=== PATIENT | female | born 2000 | race Two or more races ===

== ENCOUNTER 2024-10-03 10:05 | Inpatient (IN) | payer BC ==
[2024-10-03] VITALS (15 sets, daily range): BP systolic 92–113; BP diastolic 52–73; PULSE 67–96; RESP 10–18; TEMP 98.1; O2SAT 96–100
[~2024-10-03] VITALS: Ht 160 cm; Wt 61.2 kg
--- NOTE | 2024-10-03 10:19 | Physician Documentation ---
History of Present Illness Chief Complaint: Abdominal Pain w/vomiting Stated Complaint: TRANSFER Time Seen by MD: 10:09 Source: patient (16) HPI Patient was transferred to us from [facility] with acute appendicitis. She reports that she started having what felt like a stitch in her right side while driving up to [facility] yesterday, and the abdominal pain has settled in the middle of her abdomen today. She presented with vomiting and diarrhea with some low abdominal pain, but the extent of her pain prompted the transferring physician to order a CT scan. This is consistent with acute appendicitis and patient was transferred here for further care. She received Zosyn at the transferring facility, white blood cell count was 11, test negative, a received IV fluids and [address]an on the way to the hospital. She is NPO and awaiting surgical consultation. Medication Reconciliation Allergies: Coded Allergies: No Known Allergies (Unverified , 10/03/24) Miscellaneous Medications Home Med List (No Home Medications), (Reported) Past Medical History Past Medical History: No Pertinent History Smoking Status: Never smoker Alcohol Use: None Drug Use: none Review of Systems All Other Systems at this time: Reviewed and Negative Physical Exam Vital Signs: Temperature: 97.1, Source: Oral, Heart Rate: 89, Respiratory Rate: 16, BP: 122/80, Pulse Oximetry: 100, Weight: 61.230 Oxygen Flow Rate: 0 Physical Exam General: Pt is awake, alert, oriented x4 in no acute distress and well appearing. Head: Normocephalic and atraumatic. Eyes: Conjunctiva normal. ENT: Mucous membranes moist. Neck: Supple. Chest: Clear to auscultation bilaterally, without rales, rhonchi, or wheezes. There is no accessory muscle use or retractions. Cardiac: Regular rate and rhythm without murmurs, gallops or rubs. Palpation of the chest wall is normal. Abd: Soft, nondistended, tender diffusely but especially at the epigastrium and right lower quadrant, with hypoactive bowel sounds. No guarding or rebound. Extremities: Within normal limits without cyanosis, clubbing, or edema. Skin: Niles, warm and dry with no significant rash appreciated. Neuro: Cranial nerves II-XII grossly intact. The gait is normal. Progress Progress Note Labs from [facility]: WBC 13, hemoglobin 11.9, platelets 228. CRP 9.67. CT: Findings consistent with acute appendicitis considering significantly dilated and fluid-filled appendix measuring up to 1.4 cm with associated several appendicoliths currently. There was no a pit periappendiceal walled-off fluid collection or free abdominal air. Results/Orders Results/Orders Vital Signs 10/03/24 10:07 Temp 97.1 Pulse 89 Resp 16 B/P (MAP) 122/80 Pulse Ox 100 O2 Flow Rate 0 Consults/PCP Consults/PCP #1: Time Call Requested: 10:18 Consult Reason/Comments: Case d/w Dr. Ram, who will see. Consults/PCP #2: Time Call Requested: 10:18 Consult Reason/Comments: Hospitalist Additional Comment 11:00 Dr. Flannery agrees to admit Medical Decision Making Additional Comments CT verified appendicitis without obstruction or perforation, admit for surgical consultation. Departure Time of Disposition: 10:27 Impression: Primary Impression: Acute appendicitis Qualified Codes: K35.80 - Unspecified acute appendicitis Condition: Fair Referrals: NO PRIMARY CARE PROVIDER (PCP) Education Educated: Patient Educated regarding: diagnosis, treatment JOSE ELIAS GASPAR MD Oct 03, 2024 10:19
[2024-10-03] MEDS ORDERED: NO HOME MEDS (10:24)
[2024-10-03] MEDS ORDERED: mag hydrox/Alum hydrox/simeth 30ml oral suspension PO PRN (11:00)
[2024-10-03] MEDS ORDERED: magnesium Cl slow-release 64mg tablet PO PRN (11:00)
[2024-10-03] MEDS ORDERED: potassium Cl 20 mEq SR tablet PO PRN (11:00)
[2024-10-03] MEDS ORDERED: magnesium sulf-water 2g/50mL 50 ML IV PRN (11:00)
[2024-10-03] MEDS ORDERED: HYDROcodone/acetaminophen 5mg/325mg tablet PO PRN (11:00)
[2024-10-03] MEDS ORDERED: potassium Cl 40MEQ/1/2NS 520ml 520 ML IV PRN (11:00)
[2024-10-03] MEDS ORDERED: magnesium hydroxide 30ml (MOM) UD suspension PO PRN (11:00)
[2024-10-03] MEDS ORDERED: magnesium sulf-water 4G/100mL 100 ML IV PRN (11:00)
[2024-10-03] MEDS ORDERED: acetaminophen 325mg tablet PO PRN (11:00)
[2024-10-03] MEDS: normal saline 1000ml 1,000 ML IV SCH (11:37)
--- NOTE | 2024-10-03 11:40 | HISTORY AND PHYSICAL ---
History & Physical Providers to CC ~ History of Present Illness Reason for Admit\Complaint: Acute appendicitis History of Present Illness This is a 24-year-old female who was transferred from [facility] she was driving up to [facility] yesterday when she noticed abdominal pain in her right lower quadrant and with nausea and vomited. The patient denies being febrile. Patient has decided to go to the ED to the ED she has been having nausea and diarrhea since yesterday and CT scan was obtained that demonstrated an acute appendicitis [place] a [place] [id number] [place] the patient was transferred to [facility] she is NPO Dr. Hussein ED physician spoke to on-call surgeon Dr. Ram who is going to take the patient to surgery the patient is on IV Zosyn in his NPO. Allergies: Coded Allergies: No Known Allergies (Unverified , 10/03/24) Home Medications Home Medications Active Reported No Home Medications (Home Med List) Each Past Medical History Past Medical History No chronic health problems Past Surgical History Surgical History Comment No prior surgeries Family History Family History: FH: diabetes mellitus FATHER MOTHER Past Social History Social History Comment Patient denes history of smoking/ drinking alcohol nor any illicit drug use Full Code Status ROS ROS Except for positives in the HPI the rest of the 14 point review systems is negative Exam Vitals: Vital Signs Date Time Temp Pulse Resp B/P (MAP) Pulse Ox O2 Delivery O2 Flow Rate FiO2 10/03/24 10:52 97.1 68 18 122/81 (95) 100 0 General: Gen. No acute distress alert and oriented 4 Lungs clear to ascultation bilaterally, no wheezes rales or rhonchi appreciated Heart normal sinus rhythm no murmurs rubs or clicks noted Abdomen soft, mild right lower quadrant abdominal tenderness, bowel sounds are normoactive Lower extremities no clubbing cyanosis, nor edema appreciated bilaterally Advance Care Planning Advanced Care plannin - 30 Minutes Problems: (1) Acute appendicitis Status: Acute Additional Plan # acute appendicitis- NPO, on IV Zosyn, on-call surgeon Dr. Ram is aware of the patient and will consult for a appendectomy. # DVT prophylaxis SCDs I spent a total of 16 minutes on reviewing various resuscitative measures/ ACP with the patient at the time of admission. The patient has decided on full code status. Date of Service: Oct 03, 2024 Billing Provider: AUGUSTIN WOODS DO Common Visit Codes: [id number] INP/OBS CARE (MOD) Secondary Visit Codes: [id number] CARE PLAN 30 MINUTES Problem Qualifiers (1) Acute appendicitis: Acute appendicitis type: unspecified acute appendicitis type Qualified Codes: K35.80 - Unspecified acute appendicitis AUGUSTIN WOODS DO Oct 03, 2024 11:40
[2024-10-03] MEDS: ondansetron/PF 4mg/2ml inj IV PRN (12:21)
[2024-10-03] MEDS ORDERED: proCHLORperazine 10 MG/2 ml inj IV PRN (13:20)
[2024-10-03] MEDS ORDERED: morphine 4 MG/ML inj SYRINge IV PRN (13:20)
[2024-10-03] MEDS ORDERED: hydrALAZINE 20mg/ml inj. IV PRN (13:20)
[2024-10-03] MEDS ORDERED: meperidine/PF 25mg/ml syringe IV PRN (13:20)
[2024-10-03] MEDS ORDERED: morphine 2 MG/ML inj. syringe IV PRN (13:20)
[2024-10-03] MEDS ORDERED: labetalol 20mg/4ml (5mg/ml) syringe IV PRN (13:20)
[2024-10-03] MEDS ORDERED: HYDROmorphone/PF 0.2 MG/ML SYRINGE IV PRN ×2 (13:20)
[2024-10-03] MEDS ORDERED: ondansetron/PF 4mg/2ml inj IV PRN ×2 (13:20→16:15)
[2024-10-03] MEDS ORDERED: BUPIVAcaine 2.5mg/ml inj 50ml vial (contains preservative) ONE (13:32)
--- NOTE | 2024-10-03 13:38 | PROGRESS NOTE ---
Progress Note ID Providers to CC ~ Progress Note Progress Note: pt seen and examined-needs jayleno appy-possible open-discussed procedure including risks/benefits/alternatives MEI PEREZ MD Oct 03, 2024 13:38
[2024-10-03] MEDS: HYDROmorphone inj. 0.5 MG/0.5 ML DISP.SYRIN IV PRN (13:50)
[2024-10-03] MEDS ORDERED: midazolam 1 mg/ML 2ml injection ONE (15:12)
[2024-10-03] MEDS ORDERED: fentaNYL /PF 50mcg/ml 5ml ampule ONE (15:12)
[2024-10-03] MEDS ORDERED: propofol inj 20 ML IV ONE (15:24)
[2024-10-03] MEDS ORDERED: LIDOcaine 2% (20mg/ml) 5ml vial ONE (15:25)
[2024-10-03] MEDS ORDERED: dexamethasone sod phosphate 4mg/ml inj. ONE (15:25)
[2024-10-03] MEDS ORDERED: ceFOXitin 1000 MG inj ONE ×2 (15:25)
[2024-10-03] MEDS ORDERED: rocuronium 10mg/ml inj IV ONE (15:25)
[2024-10-03] MEDS ORDERED: neostigmine methylsulfate 1 MG/ML 10ml vial ONE ×2 (15:25→16:02)
[2024-10-03] MEDS ORDERED: sevoflurane 250ml liquid IH ONE (15:28)
[2024-10-03] MEDS: BUPIVAcaine/PF 2.5 mg/ml (0.25%) 30ml vial IJ ONE (15:41)
[2024-10-03] MEDS ORDERED: piperacillin/tazo 4.5gm/100ml 100 ML IV SCH (16:00)
[2024-10-03] MEDS ORDERED: glycopyrrolate 0.2mg/ml inj ONE (16:02)
[2024-10-03] MEDS ORDERED: ondansetron/PF 4mg/2ml inj ONE (16:02)
--- NOTE | 2024-10-03 16:12 | OPERATIVE REPORT ---
Operative Report Providers to CC ~ Date of Procedure: Oct 03, 2024 Pre-Operative Diagnosis: Ac Appendicitis Post-Operative Diagnosis SAME as PRE-Op Procedure Performed maikel garcia Surgeon: jeremy delarosa Anesthesiologist: Nohelia Herrera Type of Anesthesia: General Findings: appendicitis Estimated Blood Loss: min Specimen Removed: MEI Cohen MD Oct 03, 2024 16:12
[2024-10-03] MEDS ORDERED: PCA WASTE DOCUMENTATION 1 MG ML MC SCH (16:15)
[2024-10-03] MEDS ORDERED: naloxone 0.4 mg/ml inj IV PRN (16:15)
[2024-10-03] MEDS: acetaminophen 1,000mg/100ml IV 100 ML IV PRN (16:23)
[2024-10-03] MEDS: HYDROmorphone inj. 0.5 MG/0.5 ML DISP.SYRIN IV ONE (16:55)
--- NOTE | 2024-10-03 17:06 | OPERATIVE REPORT ---
DATE OF SURGERY: 10/03/2024 DICTATING PHYSICIAN: Martin Ram MD PREOPERATIVE DIAGNOSIS: Appendicitis. POSTOPERATIVE DIAGNOSIS: Appendicitis. PROCEDURE PERFORMED: Robotic appendectomy. SURGEON: Martin Ram MD CERTIFIED DIALYSIS TECHNICIAN: None. ANESTHESIA: General/Dr. Herrera. DRAINS: None. INDICATIONS FOR OPERATION: A 24-year-old female with abdominal pain, was found to have acute appendicitis, taken to Surgery for the appendectomy. INTRAOPERATIVE FINDINGS: Acute appendicitis. DESCRIPTION OF PROCEDURE: The patient was placed supine on the operating table. After the induction of general anesthesia and placement of endotracheal tube, the abdomen was prepped and draped. A supraumbilical incision was then made and a 12 mm port was placed using open technique. Pneumoperitoneum was then begun by insufflation of CO2. Additional ports were placed, one in the left and one placed in the right. Robot was then brought to the field. Camera port docked. Camera placed. Camera targeted. Additional ports were then docked and instruments placed. Abdomen was then explored. Appendix was easily visualized in the pelvis. ligated using a stapler. Appendiceal-cecal junction was identified, isolated, and ligated with a blue load. When the appendix was fully mobilized, hemostasis was found to be adequate. Robotic instruments were removed. Robot undocked from the field. The appendix was then placed in a laparoscopic bag using the laparoscope. The abdomen was copiously irrigated with large amount of antibiotic-containing solution. Hemostasis was found to be adequate. Ports were removed along with the appendix in Endobag. Pneumoperitoneum was then evacuated. Wounds were closed in layers. Skin was closed with subcuticular sutures. Dressing was applied. The patient was transferred to the recovery room in stable condition after reversing from general anesthesia. Martin Ram MD TID: [id number] RECEIPT: [id number] KB/YO cc: Martin Ram MD MTDD
[2024-10-03] MEDS: HYDROmorphone/PF 0.2 MG/ML SYRINGE IV PRN (18:03)
[2024-10-03] MEDS: piperacillin/tazo 4.5gm/100ml 100 ML IV SCH (20:27)
[2024-10-03] MEDS: normal saline 1000ml 1,000 ML IV ONE (22:07)
[2024-10-04] VITALS (9 sets, daily range): BP systolic 98–130; BP diastolic 55–93; PULSE 69–95; RESP 14–20; TEMP 98.2–100.9; O2SAT 96–100
[2024-10-04] MEDS: HYDROcodone/acetaminophen 10/325mg tab PO PRN (01:05)
[2024-10-04 05:17] LABS: BASOPHILS % (AUTO) 0.1 % (0-1); EOSINOPHILS % (AUTO) 0 % (0-6); HEMATOCRIT 23.6 % (35.0-45.0); HEMOGLOBIN 7.8 g/dl (12.0-16.0); LYMPHOCYTES # (AUTO) 0.6 X10'3 (1.1-4.8); LYMPHOCYTES % (AUTO) 4.8 % (21-51); MEAN CORPUSCULAR HEMOGLOBIN 28.6 PG (27.0-31.0); MEAN CORPUSCULAR HGB CONC 32.9 g/dL (33.0-36.5); MEAN CORPUSCULAR VOLUME 86.9 FL (78-98); MEAN PLATELET VOLUME 9.4 FL (7.4-10.4); MONOCYTES # (AUTO) 0.5 X10'3 (0-0.9); MONOCYTES % (AUTO) 3.9 % (2-12); NEUTROPHILS # (AUTO) 11.1 X10'3 (1.8-7.7); NEUTROPHILS % (AUTO) 91.2 % (42-75); PLATELET COUNT 184 X10'3 (140-440); RED BLOOD COUNT 2.72 X10'6 (4.20-5.60); RED CELL DISTRIBUTION WIDTH 13.5 % (11.5-14.5); WHITE BLOOD COUNT 12.2 X10'3 (4.5-11.0)
[2024-10-04 05:37] LABS: ALANINE AMINOTRANSFERASE 17 U/L (12-78); ALBUMIN 2.8 G/DL (3.4-5.0); ALKALINE PHOSPHATASE 46 IU/L (46-116); ANION GAP 7 (8-16); ASPARTATE AMINO TRANSFERASE 18 U/L (10-37); BILIRUBIN,TOTAL 0.5 MG/DL (0.1-1.0); BLOOD UREA NITROGEN 6 MG/DL (7-18); BUN/CREATININE RATIO 8.1 (10.0-20.0); CALCIUM 7.9 MG/DL (8.5-10.1); CHLORIDE 111 MMOL/L (99-107); CREATININE 0.74 MG/DL (0.40-0.90); GLUCOSE 129 MG/DL (70-104); MAGNESIUM 1.6 MG/DL (1.5-2.4); SODIUM 142 MMOL/L (135-145); TOTAL CARBON DIOXIDE 23.8 MMOL/L (24-32); TOTAL PROTEIN 5.7 G/DL (6.4-8.2); eCRCL 98 ML/MIN; eGFR > 90 ML/MIN
[2024-10-04] MEDS: K and/or MAG REPLACEMENT MC SCH (08:00)
[2024-10-04] MEDS: docusate sod 100mg capsule PO SCH (08:14)
--- NOTE | 2024-10-04 09:04 | CONSULTATION ---
DATE OF CONSULTATION: 10/03/2024 DICTATING PHYSICIAN: Martin Ram MD REASON FOR CONSULTATION: Abdominal pain. HISTORY OF PRESENT ILLNESS: The patient is a 24-year-old female who was initially seen at [facility] with abdominal pain and CAT revealed evidence of acute appendicitis, subsequently transferred to [facility]. On further questioning, the patient complains of right lower quadrant pain. He also has some nausea and diarrhea. PAST MEDICAL HISTORY: Negative. PAST SURGICAL HISTORY: Negative. HOME MEDICATIONS: None. ALLERGIES: None. SOCIAL HISTORY: The patient denies drugs, tobacco or alcohol use. REVIEW OF SYSTEMS: Please see H and P. PHYSICAL EXAMINATION: GENERAL: Well-nourished female in no distress. VITAL SIGNS: Unremarkable. ABDOMEN: Abdominal exam shows some right lower quadrant tenderness. EXTREMITIES: Unremarkable. NEUROLOGIC: Nonfocal. LABORATORY DATA: WBC of 11. IMAGING STUDIES: CT of the abdomen reveals evidence of acute appendicitis. IMPRESSION: Acute appendicitis. RECOMMENDATIONS: * Admit. * Hydrate. * IV antibiotics. * Robotic appendectomy. Martin Ram MD TID: [id number] RECEIPT: [id number] KB/RULA/AMI
[2024-10-04] MEDS ORDERED: HYDR-3964 PO (10:48)
[2024-10-04 12:22] LABS: BASOPHILS % (AUTO) 0.1 % (0-1); EOSINOPHILS % (AUTO) 0 % (0-6); HEMATOCRIT 23.2 % (35.0-45.0); HEMOGLOBIN 7.5 g/dl (12.0-16.0); LYMPHOCYTES # (AUTO) 1.1 X10'3 (1.1-4.8); LYMPHOCYTES % (AUTO) 8.4 % (21-51); MEAN CORPUSCULAR HEMOGLOBIN 28.1 PG (27.0-31.0); MEAN CORPUSCULAR HGB CONC 32.3 g/dL (33.0-36.5); MEAN CORPUSCULAR VOLUME 87.2 FL (78-98); MEAN PLATELET VOLUME 9.3 FL (7.4-10.4); MONOCYTES # (AUTO) 0.8 X10'3 (0-0.9); MONOCYTES % (AUTO) 6.4 % (2-12); NEUTROPHILS # (AUTO) 11.1 X10'3 (1.8-7.7); NEUTROPHILS % (AUTO) 85.1 % (42-75); PLATELET COUNT 195 X10'3 (140-440); RED BLOOD COUNT 2.66 X10'6 (4.20-5.60); WHITE BLOOD COUNT 13.1 X10'3 (4.5-11.0)
[2024-10-04] MEDS: ringers solution, lacted 1,000 ML IV SCH (12:55)
[2024-10-04] MEDS: acetaminophen 325mg tablet PO PRN (18:03)
[2024-10-04] MEDS: HYDROmorphone inj. 0.5 MG/0.5 ML DISP.SYRIN IV ONE (19:20)
--- NOTE | 2024-10-04 20:03 | PROGRESS NOTE ---
Daily Progress Note Providers to CC ~ Antibiotic Timeout Antibiotic Ordered?: Yes Subjective Was anticipating discharging the patient today however she did drop her hemoglobin to 7.5 and her abdomen is distended and significantly tender- evaluated by Dr Ram surgeon who is planning to take the patient back to the OR for exploratory laparotomy. Objective Vital Signs Date Time Temp Pulse Resp B/P (MAP) Pulse Ox O2 Delivery O2 Flow Rate FiO2 10/04/24 19:20 14 10/04/24 18:03 100.9 10/04/24 10:00 95 130/93 (105) 100 Room Air 10/03/24 19:30 0.0 Result Diagram: 10/04/24 1205 10/04/24 0433 Gen. No acute distress alert and oriented 4 Lungs clear to ascultation bilaterally, no wheezes rales or rhonchi appreciated Heart normal sinus rhythm no murmurs rubs or clicks noted Abdomen warm to the touch, moderately distended in semi firm, significant generalized tenderness Lower extremities no clubbing cyanosis, nor edema appreciated bilaterally Problem\Assessment\Plan Problems/Diagnosis: (1) Acute appendicitis # acute appendicitis Status post robotic appendectomy On IV Zosyn # downtrend in hemoglobin with significant abdominal tenderness Dr Ram is concerned that the patient's abdominal discomfort is significantly more than to be expected postop in his concerned that the patient may have a abdominal bleed in his taking the patient back to the OR # leukocytosis Possibly secondary to leukemoid reaction Remains on Zosyn # DVT prophylaxis SCDs Date of Service: Oct 04, 2024 Billing Provider: AUGUSTIN WOODS DO Common Visit Codes: [id number] INP/OBS CARE(HIGH) Problem Qualifiers (1) Acute appendicitis: Qualified Codes: K35.80 - Unspecified acute appendicitis AUGUSTIN WOODS DO Oct 04, 2024 20:03
[2024-10-04 20:18] LABS: HEMATOCRIT 22.2 % (35.0-45.0); HEMOGLOBIN 7.2 g/dl (12.0-16.0); MEAN CORPUSCULAR HEMOGLOBIN 28.1 PG (27.0-31.0); MEAN CORPUSCULAR HGB CONC 32.4 g/dL (33.0-36.5); MEAN CORPUSCULAR VOLUME 86.8 FL (78-98); MEAN PLATELET VOLUME 9.4 FL (7.4-10.4); PLATELET COUNT 189 X10'3 (140-440); RED BLOOD COUNT 2.56 X10'6 (4.20-5.60); RED CELL DISTRIBUTION WIDTH 13.8 % (11.5-14.5); WHITE BLOOD COUNT 11.5 X10'3 (4.5-11.0)
--- NOTE | 2024-10-04 21:10 | PROGRESS NOTE ---
Progress Note ID Providers to CC ~ Progress Note Progress Note: complains of pain/vss/abd-mild distention/labs noted a/p 1. s/p appy-hgb decreased but stable/anticipate dc in am MEI PEREZ MD Oct 04, 2024 21:10
[2024-10-05] VITALS (7 sets, daily range): BP systolic 99–121; BP diastolic 50–71; PULSE 72–82; RESP 13–18; TEMP 98–100.9; O2SAT 98–100
[2024-10-05 05:25] LABS: BASOPHILS % (AUTO) 0.3 % (0-1); EOSINOPHILS % (AUTO) 0.4 % (0-6); LYMPHOCYTES # (AUTO) 1.6 X10'3 (1.1-4.8); LYMPHOCYTES % (AUTO) 24.5 % (21-51); MEAN CORPUSCULAR HEMOGLOBIN 28.8 PG (27.0-31.0); MEAN CORPUSCULAR HGB CONC 33.2 g/dL (33.0-36.5); MEAN CORPUSCULAR VOLUME 86.8 FL (78-98); MONOCYTES # (AUTO) 0.5 X10'3 (0-0.9); MONOCYTES % (AUTO) 7.9 % (2-12); NEUTROPHILS # (AUTO) 4.3 X10'3 (1.8-7.7); NEUTROPHILS % (AUTO) 66.9 % (42-75); PLATELET COUNT 145 X10'3 (140-440); RED BLOOD COUNT 2.16 X10'6 (4.20-5.60); RED CELL DISTRIBUTION WIDTH 13.8 % (11.5-14.5); WHITE BLOOD COUNT 6.5 X10'3 (4.5-11.0)
[2024-10-05 05:27] LABS: HEMATOCRIT 18.7 % (35.0-45.0); HEMOGLOBIN 6.2 g/dl (12.0-16.0)
[2024-10-05 05:49] LABS: ALANINE AMINOTRANSFERASE 16 U/L (12-78); ALBUMIN 2.5 G/DL (3.4-5.0); ALBUMIN/GLOBULIN RATIO 0.9 (1.1-1.5); ALKALINE PHOSPHATASE 39 IU/L (46-116); ANION GAP 6 (8-16); ASPARTATE AMINO TRANSFERASE 12 U/L (10-37); BILIRUBIN,TOTAL 0.3 MG/DL (0.1-1.0); BLOOD UREA NITROGEN 8 MG/DL (7-18); BUN/CREATININE RATIO 10.1 (10.0-20.0); CALCIUM 7.8 MG/DL (8.5-10.1); CHLORIDE 113 MMOL/L (99-107); CREATININE 0.79 MG/DL (0.40-0.90); GLUCOSE 86 MG/DL (70-104); MAGNESIUM 1.9 MG/DL (1.5-2.4); POTASSIUM 3.3 MMOL/L (3.5-5.1); SODIUM 145 MMOL/L (135-145); TOTAL CARBON DIOXIDE 26.4 MMOL/L (24-32); TOTAL PROTEIN 5.2 G/DL (6.4-8.2); eCRCL 92 ML/MIN; eGFR 90 ML/MIN
[2024-10-05] MEDS ORDERED: iohexol 300mg/ml 100ml inj. ONE (06:06)
--- NOTE | 2024-10-05 06:43 | RADIOLOGY REPORT ---
Exam: CT CT ABDOMEN PELVIS W/ IV CONTRAST History: low H H, S/P LAP APPENDECTOMY X 2 DAYS AGO Comparison Study: None Contrast: Type of contrast: Omnipaque 300 Contrast injected: 100 mL Contrast wasted: 0 TECHNIQUE: CT scan of the abdomen pelvis was performed with intravenous contrast. Coronal and sagitt al reformatted images are provided. Radiation Dose Information: CT Dose: CTDI volume is 11.2 mGy. Dose-length product is 63.3 mGy*cm FINDINGS: Lung Bases: There is a small right pleural effusion. Right lower lobe atelectasis. Normal heart siz e. No pleural or pericardial effusion. Liver: The liver is normal in size. No focal lesions. Normal hepatic vascular enhancement. Mild dae portal edema. Gallbladder and Biliary Tree: Gallbladder is unremarkable. No biliary ductal dilatation. Spleen: Unremarkable Pancreas: The pancreas is normal in appearance without focal lesions or abnormal enhancement. Adrenal Glands: Unremarkable Kidneys: Kidneys demonstrate normal symmetric enhancement without focal lesions, calculi or hydroneph rosis. Bladder: Unremarkable Bowel: The stomach is grossly normal in appearance. The small bowel is normal in caliber. Scattered stool and air throughout the colon without dilatation. Serpiginous hyperdensity in the right lower qu adrant likely reflecting postsurgical material in the setting of prior appendectomy. Peritoneum: There is moderate high attenuating complex fluid in the quadrant and pelvis consistent wi th hemoperitoneum. No evidence of pneumoperitoneum. Mild mesenteric edema. Lymphadenopathy: No mesenteric, retroperitoneal or periportal lymphadenopathy. Abdominal Wall: Small foci of subcutaneous emphysema in the ventral abdominal wall. There is fat str anding and soft tissue thickening in the subcutaneous soft tissues of the anterior left lower quadran t. There is fluid collection in the left lateral abdominal musculature measuring 8.5 cm in AP dimens ion by 1.7 cm in maximum thickness. Vasculature: The visualized abdominal aorta is normal in size and caliber. Abdominal and pelvic vess els demonstrate normal enhancement. Pelvic Organs: Heterogeneous attenuation in the uterus and fluid in the endometrium. Fluid in the ce rvix. Right corpus luteum. Musculoskeletal: No aggressive focal bony lesions, acute fractures or dislocation. Soft tissues: Unremarkable. IMPRESSION: 1. Moderate to large volume hemoperitoneum in the right lower quadrant and lower pelvis. 2. Postsurgical changes from prior appendectomy. 3. Left lower quadrant anterior abdominal wall subcutaneous stranding and fluid collection in the lef t lateral abdominal musculature which may reflect serial and postoperative change. Infection is not excluded. 4. Heterogeneous attenuation of the uterus and fluid in the endometrium. Please correlate with patien t's symptoms. Pelvic ultrasound may be obtained if clinically warranted. 5. Small right pleural effusion. Right lower lobe atelectasis. All CT scans at this medical facility are performed using dose modulation techniques as appropriate t o a performed exam including the following: Automated exposure control was utilized; adjustment of th e MA and/or KV according to patient size; and use of iterative reconstruction technique.
[2024-10-05 07:23] LABS: ABSOLUTE RETICS # 33800 /CUMM (23000-93000); RETICULOCYTE % (AUTO) 1.6 % (0.5-1.5)
[2024-10-05] MEDS: iron dextran complex inj. 75 MG in normal saline 100ml IV soln 100 ML IV ONE ×2 (08:00→16:22)
[2024-10-05 09:18] LABS: % IRON SATURATION 5 % (11-46); IRON 12 UG/DL (49-151); TOTAL IRON BINDING CAPACITY 255 UG/DL (259-388)
[2024-10-05 09:29] LABS: FERRITIN 32 NG/ML (8-252)
[2024-10-05] MEDS: potassium Cl 20 mEq SR tablet PO PRN (09:38)
[2024-10-05] MEDS: furosemide 20 MG/2 ML vial IV ONE (10:00)
[2024-10-05] MEDS ORDERED: iron dextran complex inj. 0 MG in normal saline 500ml IV soln 500 ML IV ONE (11:25)
--- NOTE | 2024-10-05 11:34 | PATHOLOGY REPORT ---
[facility] [address] [place] [address] SURGICAL PATHOLOGY REPORT CaseNumber: [id number] Surgeon:Martin Ram M.D. CLINICAL INFORMATION CLINICAL INFORMATION: AC Appendicitis. DIAGNOSIS DIAGNOSIS: APPENDIX, ROBOTIC-ASSISTED LAPAROSCOPIC APPENDEC - ACUTE APPENDICITIS - NO DYSPLASIA OR MALIGNANCY MICROSCOPIC DESCRIPTION MICROSCOPIC DESCRIPTION: Performed. GROSS DESCRIPTION GROSS DESCRIPTION: Received in formalin labeled with the patient's name, number, and "appendix" is a uniform caliber vermiform appendix which measures 9.5 cm long by 1.4 cm in diameter. The serosa is c ongested with areas of indurated fibropurulent exudate. There is a 3.5 cm of attached periappendicea l fat. Sectioning reveals a dilated lumen containing purulent material and two fecaliths both measur ing 0.5 cm. Wooden Barrel Mechanic sections of the proximal, mid, and distal portions of the appendix are penaloza bmitted as A1. The time at which the specimen was removed was 1600. The time at which the specimen was placed in formalin was 1600. (ohb) Electronically signed by: Peter Lomeli M.D. 10/05/2024 10:51:00 AM
[2024-10-05] MEDS: iron dextran complex inj. 25 MG in normal saline 100ml IV soln 100 ML IV ONE (11:40)
[2024-10-05 12:34] LABS: HEMATOCRIT 23.8 % (35.0-45.0); HEMOGLOBIN 7.8 g/dl (12.0-16.0); MEAN CORPUSCULAR HEMOGLOBIN 28.6 PG (27.0-31.0); MEAN CORPUSCULAR HGB CONC 32.7 g/dL (33.0-36.5); MEAN CORPUSCULAR VOLUME 87.4 FL (78-98); MEAN PLATELET VOLUME 9.2 FL (7.4-10.4); PLATELET COUNT 213 X10'3 (140-440); RED BLOOD COUNT 2.72 X10'6 (4.20-5.60); RED CELL DISTRIBUTION WIDTH 13.8 % (11.5-14.5); WHITE BLOOD COUNT 7.4 X10'3 (4.5-11.0)
[2024-10-05] MEDS ORDERED: FERR325T32 PO (14:36)
--- NOTE | 2024-10-05 14:38 | DISCHARGE SUMMARY ---
Discharge Summary Providers to CC ~ Discharge Summary Hospital Course DATE OF ADMISSION: DATE OF DISCHARGE: New Medications: Ferrous Sulfate (Ferrous Sulfate) 325 Mg (65 Mg Iron) Tablet 1 TAB PO DAILY for 90 Days, #90 TAB Take 1 tablet by mouth on an empty stomach once daily Hydrocodone Bit/Acetaminophen (Hydrocodon-Acetaminophen 5-325) 5 Mg-325 Mg Tablet 1 TAB PO Q4H PRN for severe pain (7-10), #12 TAB Discontinued Medications: Home Med List (No Home Medications) Each Discharge Summary: *Problems/Diagnosis: (1) Acute appendicitis Status: Acute Problem Qualifiers (1) Acute appendicitis: Qualified Codes: K35.80 - Unspecified acute appendicitis RONDA MORRISON [facility] Oct 05, 2024 14:38
--- NOTE | 2024-10-05 14:57 | PROGRESS NOTE ---
Progress Note ID Providers to CC ~ Progress Note Progress Note: pain improving/vss/abd-mild distention/ct reviewed/labs noted a/p 1. s/p appy-bleeding resolved/anticipate dc in am MEI PEREZ MD Oct 05, 2024 14:57
--- NOTE | 2024-10-05 14:58 | PROGRESS NOTE ---
Daily Progress Note Providers to CC ~ Antibiotic Timeout Antibiotic Ordered?: Yes Subjective No acute events overnight. Patient examined at bedside. No new complaints. Patient denies chest pain, sob, palpitations, n/v/d. Patient reports abdominal pain. CT abdomen/pelvis reveals moderate to large volume hemoperitoneum in the right lower quadrant and lower pelvis. Vss, labs notable for downtrended H/H with uptrended repeat H/H. Objective Vital Signs Date Time Temp Pulse Resp B/P (MAP) Pulse Ox O2 Delivery O2 Flow Rate FiO2 10/05/24 13:04 14 10/05/24 08:00 Room Air 10/05/24 06:28 114/71 (85) 10/05/24 06:00 72 10/05/24 04:37 100 0 21 10/04/24 22:00 98.2 Result Diagram: 10/05/24 1157 10/05/24 0453 Physical Exam General: Generalized weakness, A&Ox 3, NAD HEENT: Normocephalic, PERRLA Neck: Supple, trachea midline, no JVD Chest: Clear to auscultation bilaterally Cardiovascular: RRR, S1&S2 GI: Tenderness in right and left lower quadrant abdomen; negative rebound tenderness Extremities: No cyanosis/clubbing/or edema FINISHER COLD ROLLING: CN II-XII intact, no focal deficits Musculoskeletal: No paraspinal muscle tenderness, no muscle spasm Skin: Laparoscopic incisions sutured and closed without s/s of infection Problem\Assessment\Plan Problems/Diagnosis: (1) Acute appendicitis # Acute appendicitis -status post robotic appendectomy; downtrend in hemoglobin with significant abdominal tenderness; Dr Ram is concerned that the patient's abdominal discomfort is significantly more than to be expected postop in his concerned that the patient may have a abdominal bleed in his taking the patient back to the OR -on IV Zosyn -10/05: CT reveals moderate to large hemoperitoneum, surgeon following # Anemia # RAMOS -10/05: iron infusion DVT prophylaxis SCDs Date of Service: Oct 05, 2024 Billing Provider: RONDA MORRISON Common Visit Codes: [id number] INP/OBS CARE(HIGH) Problem Qualifiers (1) Acute appendicitis: Qualified Codes: K35.80 - Unspecified acute appendicitis RONDA MORRISON Oct 05, 2024 14:58
[2024-10-06] VITALS (8 sets, daily range): BP systolic 104–115; BP diastolic 62–78; PULSE 71–82; RESP 15–16; TEMP 98–99.2; O2SAT 98–100
[2024-10-06] MEDS: HYDROcodone/acetaminophen 5mg/325mg tablet PO PRN (01:50)
[2024-10-06 04:52] LABS: BASOPHILS % (AUTO) 0.3 % (0-1); EOSINOPHILS # (AUTO) 0.1 X10'3 (0-0.9); EOSINOPHILS % (AUTO) 1.3 % (0-6); LYMPHOCYTES # (AUTO) 1.8 X10'3 (1.1-4.8); LYMPHOCYTES % (AUTO) 34.4 % (21-51); MEAN CORPUSCULAR HEMOGLOBIN 29.2 PG (27.0-31.0); MEAN CORPUSCULAR HGB CONC 33.6 g/dL (33.0-36.5); MEAN CORPUSCULAR VOLUME 86.8 FL (78-98); MEAN PLATELET VOLUME 8.7 FL (7.4-10.4); MONOCYTES # (AUTO) 0.4 X10'3 (0-0.9); NEUTROPHILS # (AUTO) 2.8 X10'3 (1.8-7.7); PLATELET COUNT 187 X10'3 (140-440); RED CELL DISTRIBUTION WIDTH 13.4 % (11.5-14.5); WHITE BLOOD COUNT 5.1 X10'3 (4.5-11.0)
[2024-10-06 04:55] LABS: HEMATOCRIT 19.9 % (35.0-45.0); HEMOGLOBIN 6.7 g/dl (12.0-16.0)
[2024-10-06 05:17] LABS: ALANINE AMINOTRANSFERASE 16 U/L (12-78); ALBUMIN 2.7 G/DL (3.4-5.0); ALBUMIN/GLOBULIN RATIO 0.9 (1.1-1.5); ALKALINE PHOSPHATASE 43 IU/L (46-116); ANION GAP 7 (8-16); ASPARTATE AMINO TRANSFERASE 14 U/L (10-37); BILIRUBIN,TOTAL 0.3 MG/DL (0.1-1.0); BLOOD UREA NITROGEN 6 MG/DL (7-18); BUN/CREATININE RATIO 7.1 (10.0-20.0); CALCIUM 8.3 MG/DL (8.5-10.1); CHLORIDE 108 MMOL/L (99-107); CREATININE 0.84 MG/DL (0.40-0.90); GLUCOSE 83 MG/DL (70-104); MAGNESIUM 1.8 MG/DL (1.5-2.4); POTASSIUM 3.5 MMOL/L (3.5-5.1); SODIUM 143 MMOL/L (135-145); TOTAL CARBON DIOXIDE 28.5 MMOL/L (24-32); TOTAL PROTEIN 5.8 G/DL (6.4-8.2); eCRCL 86 ML/MIN; eGFR 84 ML/MIN
[2024-10-06] MEDS: iron dextran complex inj. 100 MG in normal saline 100ml IV soln 100 ML IV SCH (11:12)
[2024-10-06 12:50] LABS: BASOPHILS % (AUTO) 0.4 % (0-1); EOSINOPHILS # (AUTO) 0.1 X10'3 (0-0.9); EOSINOPHILS % (AUTO) 1.3 % (0-6); HEMATOCRIT 26.6 % (35.0-45.0); LYMPHOCYTES # (AUTO) 1.6 X10'3 (1.1-4.8); LYMPHOCYTES % (AUTO) 28.5 % (21-51); MEAN CORPUSCULAR HEMOGLOBIN 29.1 PG (27.0-31.0); MEAN CORPUSCULAR HGB CONC 33.8 g/dL (33.0-36.5); MEAN CORPUSCULAR VOLUME 86.3 FL (78-98); MEAN PLATELET VOLUME 8.7 FL (7.4-10.4); MONOCYTES # (AUTO) 0.5 X10'3 (0-0.9); NEUTROPHILS # (AUTO) 3.6 X10'3 (1.8-7.7); NEUTROPHILS % (AUTO) 61.8 % (42-75); PLATELET COUNT 191 X10'3 (140-440); RED BLOOD COUNT 3.08 X10'6 (4.20-5.60); RED CELL DISTRIBUTION WIDTH 13.6 % (11.5-14.5); WHITE BLOOD COUNT 5.8 X10'3 (4.5-11.0)
--- NOTE | 2024-10-06 14:46 | PROGRESS NOTE ---
Daily Progress Note Providers to CC ~ Antibiotic Timeout Antibiotic Ordered?: No Subjective No acute events overnight. Patient examined at bedside. No new complaints. Patient denies chest pain, sob, palpitations, n/v/d. Patient reports abdominal pain. CT abdomen/pelvis reveals moderate to large volume hemoperitoneum in the right lower quadrant and lower pelvis. Vss, labs notable for downtrended H/H. Seen by Dr. Ram, possible OR tomorrow if further downtrends. Objective Vital Signs Date Time Temp Pulse Resp B/P (MAP) Pulse Ox O2 Delivery O2 Flow Rate FiO2 10/06/24 11:12 20 10/06/24 08:10 98.0 72 108/71 10/06/24 05:30 98 Room Air 10/06/24 01:17 0.0 99 Result Diagram: 10/06/24 1234 10/06/24 0433 Physical Exam General: Generalized weakness, A&Ox 3, NAD HEENT: Normocephalic, PERRLA Neck: Supple, trachea midline, no JVD Chest: Clear to auscultation bilaterally Cardiovascular: RRR, S1&S2 GI: Mild tenderness in right and left lower quadrant abdomen; negative rebound tenderness Extremities: No cyanosis/clubbing/or edema BIKE TECHNICIAN: CN II-XII intact, no focal deficits Musculoskeletal: No paraspinal muscle tenderness, no muscle spasm Skin: Laparoscopic incisions sutured and closed without s/s of infection Problem\Assessment\Plan Problems/Diagnosis: (1) Acute appendicitis # Acute appendicitis -status post robotic appendectomy; downtrend in hemoglobin with significant abdominal tenderness; Dr Ram is concerned that the patient's abdominal discomfort is significantly more than to be expected postop in his concerned that the patient may have a abdominal bleed in his taking the patient back to the OR -on IV Zosyn -10/05: CT reveals moderate to large hemoperitoneum, surgeon following # Anemia # RAMOS -10/05: iron infusion DVT prophylaxis SCDs Date of Service: Oct 06, 2024 Billing Provider: RONDA MORRISON Common Visit Codes: [id number] INP/OBS CARE(HIGH) Problem Qualifiers (1) Acute appendicitis: Qualified Codes: K35.80 - Unspecified acute appendicitis RONDA MORRISON Oct 06, 2024 14:46
--- NOTE | 2024-10-06 18:01 | PROGRESS NOTE ---
Progress Note ID Providers to CC ~ Progress Note Progress Note: pain improving/vss/abd-less distended/labs noted a/p 1. s/p appy-hct improved post transfusion/ok to dc in am if hct stable MEI PEREZ MD Oct 06, 2024 18:01
[2024-10-07 03:23] VITALS: O2SAT 99
[2024-10-07 04:55] LABS: BASOPHILS % (AUTO) 0.3 % (0-1); EOSINOPHILS # (AUTO) 0.1 X10'3 (0-0.9); EOSINOPHILS % (AUTO) 2.6 % (0-6); HEMATOCRIT 24.1 % (35.0-45.0); HEMOGLOBIN 8.3 g/dl (12.0-16.0); LYMPHOCYTES # (AUTO) 1.5 X10'3 (1.1-4.8); LYMPHOCYTES % (AUTO) 26.5 % (21-51); MEAN CORPUSCULAR HEMOGLOBIN 29.3 PG (27.0-31.0); MEAN CORPUSCULAR HGB CONC 34.3 g/dL (33.0-36.5); MEAN CORPUSCULAR VOLUME 85.4 FL (78-98); MEAN PLATELET VOLUME 8.5 FL (7.4-10.4); MONOCYTES # (AUTO) 0.5 X10'3 (0-0.9); MONOCYTES % (AUTO) 8.4 % (2-12); NEUTROPHILS # (AUTO) 3.5 X10'3 (1.8-7.7); NEUTROPHILS % (AUTO) 62.2 % (42-75); PLATELET COUNT 202 X10'3 (140-440); RED BLOOD COUNT 2.83 X10'6 (4.20-5.60); RED CELL DISTRIBUTION WIDTH 13.6 % (11.5-14.5); WHITE BLOOD COUNT 5.6 X10'3 (4.5-11.0)
[2024-10-07 05:20] LABS: ALANINE AMINOTRANSFERASE 21 U/L (12-78); ALKALINE PHOSPHATASE 45 IU/L (46-116); ANION GAP 9 (8-16); ASPARTATE AMINO TRANSFERASE 23 U/L (10-37); BILIRUBIN,TOTAL 0.5 MG/DL (0.1-1.0); BLOOD UREA NITROGEN 6 MG/DL (7-18); BUN/CREATININE RATIO 7.7 (10.0-20.0); CALCIUM 8.5 MG/DL (8.5-10.1); CHLORIDE 108 MMOL/L (99-107); CREATININE 0.78 MG/DL (0.40-0.90); GLUCOSE 89 MG/DL (70-104); POTASSIUM 3.8 MMOL/L (3.5-5.1); SODIUM 145 MMOL/L (135-145); TOTAL CARBON DIOXIDE 28.3 MMOL/L (24-32); eCRCL 93 ML/MIN; eGFR > 90 ML/MIN
[2024-10-07 06:00] VITALS: BP 107/66; PULSE 66; RESP 14; TEMP 98.2; O2SAT 99
[2024-10-07 10:00] VITALS: BP 126/74; PULSE 78; RESP 16; TEMP 97.6; O2SAT 100
[2024-10-07 12:46] LABS: BASOPHILS % (AUTO) 0.4 % (0-1); EOSINOPHILS # (AUTO) 0.1 X10'3 (0-0.9); EOSINOPHILS % (AUTO) 2.2 % (0-6); HEMATOCRIT 26.8 % (35.0-45.0); LYMPHOCYTES # (AUTO) 1.3 X10'3 (1.1-4.8); LYMPHOCYTES % (AUTO) 22.3 % (21-51); MEAN CORPUSCULAR HEMOGLOBIN 28.9 PG (27.0-31.0); MEAN CORPUSCULAR HGB CONC 33.6 g/dL (33.0-36.5); MEAN CORPUSCULAR VOLUME 85.9 FL (78-98); MEAN PLATELET VOLUME 8.5 FL (7.4-10.4); MONOCYTES # (AUTO) 0.4 X10'3 (0-0.9); MONOCYTES % (AUTO) 6.7 % (2-12); NEUTROPHILS # (AUTO) 4.1 X10'3 (1.8-7.7); NEUTROPHILS % (AUTO) 68.4 % (42-75); PLATELET COUNT 238 X10'3 (140-440); RED BLOOD COUNT 3.12 X10'6 (4.20-5.60); RED CELL DISTRIBUTION WIDTH 13.6 % (11.5-14.5)
[2024-10-07] MEDS ORDERED: PSYL575P22 PO (13:55)
--- NOTE | 2024-10-07 14:41 | DISCHARGE SUMMARY ---
Discharge Summary Providers to CC ~ Discharge Summary Admission Diagnosis: Appendicitis Hospital Course DATE OF ADMISSION: 10/03/24 DATE OF DISCHARGE: 10/07/24 Discharge Diagnosis\\Comment: Acute appendicitis Anemia RAMOS Operations\\Procedures: Robotic laparoscopic appendectomy Consultants: Martin Guy Complications: None Condition on DC: Stable New Medications: Ferrous Sulfate (Ferrous Sulfate) 325 Mg (65 Mg Iron) Tablet 1 TAB PO DAILY for 90 Days, #90 TAB Take 1 tablet by mouth on an empty stomach once daily Psyllium Husk (with Sugar) (Metamucil Powder) 3.4 Gram/12 Gram Powder 3.4 G PO DAILY PRN for constipation for 10 Days, #50 G 0 Refills Hydrocodone Bit/Acetaminophen (Hydrocodon-Acetaminophen 5-325) 5 Mg-325 Mg Tablet 1 TAB PO Q4H PRN for severe pain (7-10), #12 TAB Discontinued Medications: Home Med List (No Home Medications) Each Discharge Summary: History of Present Illness From H&P: "This is a 24-year-old female who was transferred from [facility] she was driving up to [facility] yesterday when she noticed abdominal pain in her right lower quadrant and with nausea and vomited. The patient denies being febrile. Patient has decided to go to the ED to the ED she has been having nausea and diarrhea since yesterday and CT scan was obtained that demonstrated an acute appendicitis [place] [id number] [place] the patient was transferred to [facility] she is NPO Dr. Hussein ED physician spoke to on-call surgeon Dr. Ram who is going to take the patient to surgery the patient is on IV Zosyn in his NPO." Hospital Course Case was consulted with surgeon Dr. Ram and patient underwent robotic laparoscopic appendectomy on 10/03/24. Due to post-op abdominal discomfort, CT abdomen/pelvis was ordered which revealed hemoperitoneum. Although Hgb/Hct downtrended postop, it has remained stable. Patient was additionally treated with iron infusion due to lab findings consistent with iron-deficiency anemia. A repeat hemogram revealed uptrending and stable Hgb/Hct. Patient did not experience further complications throughout the entire hospital stay. Patient was seen and examined on the day of discharge. On day of discharge, vss and labs unremarkable. All labs, diagnostic workups, discharge plan discussed with patient in details during visit before discharge. All questions and concerns answered to the best of my professional knowledge. Patient is to be discharged to home to self and to follow up with PCP and Dr. Ram within 2 weeks. 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
--- NOTE | 2024-10-07 16:43 | PROGRESS NOTE ---
Progress Note ID Providers to CC ~ Progress Note Progress Note: doing well/ok to dc MEI PEREZ MD Oct 07, 2024 16:43
== END 2024-10-07 14:35 | disposition home or self-care (01) | DRG 397 ==
LOC: ER 10:05 → ED HOLD 11:00 → ORTHO 4S 17:08
PROVIDERS: ADMIT Family Medicine; ATTEND Family Medicine
PROC: 8E0W4CZ Robotic Assisted Procedure of Trunk Region, Percutaneous Endoscopic Approach (ICD-10-PCS; 2024-10-03)
PROC: 0DTJ4ZZ Resection of Appendix, Percutaneous Endoscopic Approach (ICD-10-PCS; principal; 2024-10-03 15:04)
PROC: BW211ZZ Computerized Tomography (CT Scan) of Abdomen and Pelvis using Low Osmolar Contrast (ICD-10-PCS; 2024-10-05)
PROC: 30233N1 Transfusion of Nonautologous Red Blood Cells into Peripheral Vein, Percutaneous Approach (ICD-10-PCS; 2024-10-06)
DX: K35.80 Unspecified acute appendicitis (principal); K66.1 Hemoperitoneum; D72.829 Elevated white blood cell count, unspecified; D50.8 Other iron deficiency anemias; Z87.891 Personal history of nicotine dependence
CPT/HCPCS: 96374; 96375; 99285; Z7506; Z7508; 36415; 36430; 74177; 80053; 82728; 82948; 83540; 83550; 83735; 85025; 85027; 85045; 86885; 86900; 86901; 86920; 87081; A4215; A4314; A4618; G0378; J0131; J0694; J1100; J1171; J1750; J1938; J2003; J2250; J2405; J2543; J2704; J2710; J3010; J3490; J7030; J7040; J7120; P9016; Q9967